=== PATIENT | female | born 1950 | race Caucasian/White ===

== ENCOUNTER 2016-08-04 10:30 | Outpatient (CLI) | payer OTHER ==
--- NOTE | 2016-08-04 17:08 | DIAGNOSTIC IMAGING REPORT ---
PROCEDURE: MR PELVIS W/O CONTRAST INDICATION: Low back and sacral pain, initial encounter TECHNIQUE: Coronal, axial and sagittal T1 STIR sequences. COMPARISON: None. FINDINGS: Severe degenerative changes of the distal lumbar spine with mild right lateral L4-5 subluxation. Torn left semimembranosus, semitendinosus and biceps femoris tendons with avulsion from the left ischial tuberosity, including a small a avulsion fracture. There is mild surrounding fluid. Mild bilateral SI joint degenerative changes, left greater than right. Mild subchondral edema of the lower SI joints bilaterally. There are no suspicious osseous lesions. Sacrum is intact but there is a tiny amount of fluid and the tip of the coccyx which may be post traumatic. Uterus, adnexa and bladder are normal. IMPRESSION: 1. Torn avulsed left hamstring (semimembranosus, semitendinosus and biceps femoris tendons) with small avulsion fracture of the left ischial tuberosity 2. Mild bilateral SI joint degenerative changes 3. Intact sacrum with small amount of fluid at the tip which may represent post-traumatic changes 4. Severe degenerative changes of the lower lumbar spine
== END 2016-08-04 23:00 ==
LOC: MRI SRH 10:30
DX: S76.812A Strain of other specified muscles, fascia and tendons at thigh level, left thigh, initial encounter (principal); S32.612A Displaced avulsion fracture of left ischium, initial encounter for closed fracture; M51.36 Other intervertebral disc degeneration, lumbar region